=== PATIENT | male | born 1940 | race Hispanic/Latino ===

== ENCOUNTER → 2020-09-23 | Outpatient (CLI) | payer OTHER, MEDICARE ==
[~2020-09-23] MED LIST: ASPI-556 PO; LEVO75TA10 PO
== END | disposition home or self-care (01) ==
LOC: RAH 12:57
PROVIDERS: ATTEND Internal Medicine
DX: G31.9 Degenerative disease of nervous system, unspecified (principal)
CPT/HCPCS: 70450

== ENCOUNTER → 2020-11-13 | Outpatient (CLI) | payer OTHER, MEDICARE | END | disposition home or self-care (01) | LOC: RAH 09:50 | PROVIDERS: ATTEND Internal Medicine | DX: M19.012 Primary osteoarthritis, left shoulder (principal); M47.22 Other spondylosis with radiculopathy, cervical region; M25.78 Osteophyte, vertebrae; M25.512 Pain in left shoulder; M54.2 Cervicalgia | CPT/HCPCS: 72040; 73030 ==

== ENCOUNTER → 2021-02-24 | Outpatient (CLI) | payer OTHER, MEDICARE | END | disposition home or self-care (01) | LOC: RAH 08:14 | PROVIDERS: ATTEND Orthopaedic Surgery Sports Medicine | DX: S46.212A Strain of muscle, fascia and tendon of other parts of biceps, left arm, initial encounter (principal); M75.102 Unspecified rotator cuff tear or rupture of left shoulder, not specified as traumatic; X58.XXXA Exposure to other specified factors, initial encounter; Y93.89 Activity, other specified; Y92.89 Other specified places as the place of occurrence of the external cause; Y99.8 Other external cause status | CPT/HCPCS: 73221 ==

== ENCOUNTER → 2021-07-20 | Outpatient (CLI) | payer OTHER, MEDICARE ==
[2021-07-20 16:12] LABS: CREATININE 1.2 mg/dL (0.5-1.5)
== END | disposition home or self-care (01) ==
LOC: LAB 15:27
PROVIDERS: ATTEND Internal Medicine Cardiovascular Disease
DX: I70.203 Unspecified atherosclerosis of native arteries of extremities, bilateral legs (principal)
CPT/HCPCS: 36415; 82565; 84520

== ENCOUNTER → 2021-11-18 | Outpatient (CLI) | payer OTHER, MEDICARE | END | disposition home or self-care (01) | LOC: RAH 10:23 | PROVIDERS: ATTEND Internal Medicine | DX: I82.532 Chronic embolism and thrombosis of left popliteal vein (principal); I82.512 Chronic embolism and thrombosis of left femoral vein; I82.502 Chronic embolism and thrombosis of unspecified deep veins of left lower extremity | CPT/HCPCS: 93971 ==

== ENCOUNTER → 2023-03-06 | Outpatient (CLI) | payer OTHER, MEDICARE | END | disposition home or self-care (01) | LOC: RAH 15:23 | PROVIDERS: ATTEND Internal Medicine | DX: M19.011 Primary osteoarthritis, right shoulder (principal); M25.511 Pain in right shoulder; M47.814 Spondylosis without myelopathy or radiculopathy, thoracic region; S40.011S Contusion of right shoulder, sequela; W19.XXXS Unspecified fall, sequela | CPT/HCPCS: 72070; 73000; 73030; 73060 ==

== ENCOUNTER → 2023-10-13 | Outpatient (CLI) | payer MEDICARE | END | disposition home or self-care (01) | LOC: RAH 11:06 | PROVIDERS: ATTEND Internal Medicine | DX: S69.92XD Unspecified injury of left wrist, hand and finger(s), subsequent encounter (principal); L03.114 Cellulitis of left upper limb; M19.042 Primary osteoarthritis, left hand; M19.032 Primary osteoarthritis, left wrist; M25.432 Effusion, left wrist; X58.XXXD Exposure to other specified factors, subsequent encounter | CPT/HCPCS: 73110; 73130 ==